=== PATIENT | male | born 1940 | race Caucasian/White ===

== ENCOUNTER → 2017-04-17 | Outpatient (CLI) | payer MEDICARE, OTHER ==
[~2017-04-17] MED LIST: ALLO300 PO; AMLO5 PO; GABA100 PO; METF500C PO; POTCHL20ER PO; TRADJENTA5 MG PO; ZESTORETIC 20-121 EA PO; [UNRECOGNIZED DRUG - OTHER] TOP
== END | disposition home or self-care (01) ==
LOC: LAB EV 18:27
DX: M79.672 Pain in left foot (principal)
CPT/HCPCS: 84550

== ENCOUNTER → 2017-08-11 | Outpatient (CLI) | payer MEDICARE, OTHER ==
[2017-08-11 17:59] LABS: Source, Urine Clean Catch
[2017-08-11 18:03] LABS: BASOPHILS ABSOLUTE AUTO 0.01 K/mm3 (0.00-0.23); BASOPHILS PERCENT AUTO 0 % (0-2); EOSINOPHILS ABSOLUTE AUTO 0.04 K/mm3 (0.00-0.68); EOSINOPHILS PERCENT AUTO 1 % (0-6); Hematocrit 40.2 % (37.0-53.0); IMMATURE GRAN ABSOLUTE AUTO 0.02 K/mm3 (0.00-0.10); IMMATURE GRAN PERCENT AUTO 1 % (0-1); LYMPHOCYTES ABSOLUTE AUTO 1.36 K/mm3 (0.84-5.20); LYMPHOCYTES PERCENT AUTO 39 % (21-46); MONOCYTES ABSOLUTE AUTO 0.49 K/mm3 (0.16-1.47); MONOCYTES PERCENT AUTO 14 % (4-13); Mean Corpuscular HGB 30.6 pg (26.0-34.0); Mean Corpuscular HGB Conc 34.8 g/dL (31.5-36.5); Mean Corpuscular Volume 88 fL (80-100); Mean Platelet Volume 10.1 fL (9.1-12.4); NEUTROPHILS ABSOLUTE AUTO 1.54 K/mm3 (1.96-9.15); NEUTROPHILS PERCENT AUTO 44 % (41-73); Platelet Count 192 K/mm3 (150-400); Red Blood Cell Count 4.58 M/mm3 (4.30-5.90); White Blood Cell Count 3.46 K/mm3 (4.00-11.30)
[2017-08-11 18:16] LABS: Albumin, Blood 3.9 g/dL (3.4-5.0); Albumin/Globulin Ratio 1.1 (0.8-1.8); Bilirubin, Total 0.5 mg/dL (0.1-1.0); Bun/Creatinine Ratio 15.7 (12.0-20.0); Calcium, Blood 8.8 mg/dL (8.5-10.1); Creatinine, Blood 1.27 mg/dL (0.60-1.20); Globulin, Blood 3.5 g/dL (2.2-4.0); Potassium, Blood 3.8 mmol/L (3.5-5.5); Total Protein, Blood 7.4 g/dL (6.4-8.2); Uric Acid, Blood 4.8 mg/dL (3.5-7.2)
[2017-08-11 18:18] LABS: Bacteria Not Seen /hpf; Red Blood Cells, Urine Not Seen /hpf (0-2); Squamous Epithelial Cells Rare /hpf (Few); White Blood Cells, Urine 0-2 /hpf (0-5)
== END ==
LOC: LAB EV 17:52 → LAB SHORT 17:52
PROVIDERS: Physician Assistant
DX: M79.672 Pain in left foot (principal); R10.9 Unspecified abdominal pain
CPT/HCPCS: 80053; 81015; 83690; 84550; 85025

== ENCOUNTER → 2017-08-22 | Outpatient (CLI) | payer MEDICARE, OTHER ==
[2017-08-22 15:11] LABS: BASOPHILS ABSOLUTE AUTO 0.01 K/mm3 (0.00-0.23); BASOPHILS PERCENT AUTO 0 % (0-2); EOSINOPHILS ABSOLUTE AUTO 0.06 K/mm3 (0.00-0.68); EOSINOPHILS PERCENT AUTO 2 % (0-6); Hematocrit 39.5 % (37.0-53.0); Hemoglobin 14.1 g/dL (13.5-17.5); IMMATURE GRAN ABSOLUTE AUTO 0.05 K/mm3 (0.00-0.10); IMMATURE GRAN PERCENT AUTO 1 % (0-1); LYMPHOCYTES ABSOLUTE AUTO 1.47 K/mm3 (0.84-5.20); LYMPHOCYTES PERCENT AUTO 41 % (21-46); MONOCYTES ABSOLUTE AUTO 0.42 K/mm3 (0.16-1.47); MONOCYTES PERCENT AUTO 12 % (4-13); Mean Corpuscular HGB 30.8 pg (26.0-34.0); Mean Corpuscular HGB Conc 35.7 g/dL (31.5-36.5); Mean Corpuscular Volume 86 fL (80-100); Mean Platelet Volume 10.2 fL (9.1-12.4); NEUTROPHILS ABSOLUTE AUTO 1.62 K/mm3 (1.96-9.15); NEUTROPHILS PERCENT AUTO 45 % (41-73); Platelet Count 189 K/mm3 (150-400); RDW Standard Deviation 40.2 fL (35.1-46.3); Red Blood Cell Count 4.58 M/mm3 (4.30-5.90); White Blood Cell Count 3.63 K/mm3 (4.00-11.30)
[2017-08-22 15:24] LABS: Albumin/Globulin Ratio 1.2 (0.8-1.8); Bilirubin, Total 0.4 mg/dL (0.1-1.0); Bun/Creatinine Ratio 16.1 (12.0-20.0); Calcium, Blood 8.5 mg/dL (8.5-10.1); Creatinine, Blood 1.37 mg/dL (0.60-1.20); Globulin, Blood 3.4 g/dL (2.2-4.0); Potassium, Blood 3.4 mmol/L (3.5-5.5); Total Protein, Blood 7.4 g/dL (6.4-8.2)
== END | disposition home or self-care (01) ==
LOC: LAB SHORT 15:07 → LAB EV 15:07
PROVIDERS: Physician Assistant
DX: R10.9 Unspecified abdominal pain (principal)
CPT/HCPCS: 80053; 83690; 85025

== ENCOUNTER 2018-03-12 08:21 | Day surgery (SDC) | payer MEDICARE, OTHER ==
[~2018-03-12] VITALS: Ht 203.2 cm; Wt 93.0 kg
[2018-03-12 09:53] LABS: Anion Gap 9 mmol/L (6-16); Blood Urea Nitrogen 22 mg/dL (8-24); Bun/Creatinine Ratio 21.8 (12.0-20.0); CO2, Blood 30 mmol/L (21-32); Calcium, Blood 8.8 mg/dL (8.5-10.1); Chloride, Blood 104 mmol/L (98-108); Creatinine, Blood 1.01 mg/dL (0.60-1.20); Glomerular Filtration Rate >60 (60-); Glucose, Blood 158 mg/dL (70-99); Potassium, Blood 3.1 mmol/L (3.5-5.5); Sodium, Blood 143 mmol/L (136-145)
== END 2018-03-12 22:38 | disposition home or self-care (01) ==
LOC: ORSCMMR 08:21 → ORD 09:45 → ORSCMMR 10:00
PROVIDERS: Anesthesiology; Surgery
PROC: 0JB80ZZ Excision of Abdomen Subcutaneous Tissue and Fascia, Open Approach (ICD-10-PCS; principal; 2018-03-12 11:30)
DX: D17.1 Benign lipomatous neoplasm of skin and subcutaneous tissue of trunk (principal); I10 Essential (primary) hypertension; E11.9 Type 2 diabetes mellitus without complications; G47.33 Obstructive sleep apnea (adult) (pediatric); C85.90 Non-Hodgkin lymphoma, unspecified, unspecified site; Z79.899 Other long term (current) drug therapy
CPT/HCPCS: 80048; 82947; 88304; J0690; J2250; J2405; J7120

== ENCOUNTER → 2019-01-24 | Outpatient (CLI) | payer MEDICARE, BC ==
[2019-01-24 11:04] LABS: Bilirubin, Urine Neg (Neg); Blood, Urine Neg (Neg); Glucose Qualitative, Urine 1+ (Neg); Ketones, Urine Neg (Neg); Leukocyte Esterase, Urine Neg (Neg); Nitrite, Urine Neg (Neg); Protein, Urine 1+ (Neg); Urobilinogen, Urine NORM (Normal)
[2019-01-24 11:10] LABS: Appearance, Urine Clear (Clear); Color, Urine Yellow (P-Yellow)
== END | disposition home or self-care (01) ==
LOC: LAB SHORT 09:59 → LAB 09:59
PROVIDERS: Internal Medicine Hematology & Oncology
DX: C85.90 Non-Hodgkin lymphoma, unspecified, unspecified site (principal)
CPT/HCPCS: 81003

== ENCOUNTER → 2020-04-22 | Outpatient (CLI) | payer MEDICARE, BC ==
[~2020-04-22] MED LIST changes: +ACET325 PO; +AMLO10 PO; -AMLO5 PO; +ATOR20 PO; +AZIT500 PO; +Aspir 8181 MG PO; +CEFD300 PO; +CLIN150 PO; +DEXA2 PO; +GLUCOPHAGE1000 M1 PO; +INSULANPEN SC; +LOSARTAN POTAS100 M1 PO; -METF500C PO; +METO50ER PO; +POTA10T PO; -POTCHL20ER PO; +Zofran8 MG PO
== END | disposition home or self-care (01) ==
LOC: LAB EV 15:51 → LAB SHORT 15:51
DX: R19.7 Diarrhea, unspecified (principal)
CPT/HCPCS: 87015; 87045; 87046; 87205; 87493; 87899

== ENCOUNTER 2020-04-23 19:21 | Emergency (ER) | payer MEDICARE, BC ==
[~2020-04-23] VITALS: Ht 203.2 cm; Wt 86.2 kg
[~2020-04-23 19:21] MED LIST changes: -ACET325 PO; -AZIT500 PO; -CEFD300 PO; -CLIN150 PO; -DEXA2 PO; -INSULANPEN SC; -Zofran8 MG PO
[2020-04-23] MEDS ORDERED: AZIT500 PO (19:52)
[2020-04-23] MEDS ORDERED: CLIN150 PO (19:52)
[2020-04-23 20:18] LABS: BASOPHILS PERCENT AUTO 0 % (0-2); EOSINOPHILS PERCENT AUTO 0 % (0-6); Hematocrit 36.5 % (37.0-53.0); Hemoglobin 12.9 g/dL (13.5-17.5); IMMATURE GRAN ABSOLUTE AUTO 0.04 K/mm3 (0.00-0.10); IMMATURE GRAN PERCENT AUTO 3 % (0-1); LYMPHOCYTES ABSOLUTE AUTO 0.19 K/mm3 (0.84-5.20); LYMPHOCYTES PERCENT AUTO 14 % (21-46); MONOCYTES ABSOLUTE AUTO 0.41 K/mm3 (0.16-1.47); MONOCYTES PERCENT AUTO 30 % (4-13); Mean Corpuscular HGB 29.7 pg (26.0-34.0); Mean Corpuscular HGB Conc 35.3 g/dL (31.5-36.5); Mean Corpuscular Volume 84 fL (80-100); Mean Platelet Volume 10.5 fL (9.1-12.4); NEUTROPHILS ABSOLUTE AUTO 0.73 K/mm3 (1.96-9.15); NEUTROPHILS PERCENT AUTO 53 % (41-73); Platelet Count 158 K/mm3 (150-400); RDW Coefficient Variation 12.4 % (11.7-14.2); RDW Standard Deviation 38.2 fL (35.1-46.3); Red Blood Cell Count 4.35 M/mm3 (4.30-5.90); White Blood Cell Count 1.37 K/mm3 (4.00-11.30)
[2020-04-23 20:38] LABS: Troponin I 0.035 ng/mL (0.000-0.040)
[2020-04-23 21:18] LABS: Alanine Aminotransfer (ALT/SGP 30 U/L (12-78); Albumin, Blood 3.1 g/dL (3.4-5.0); Albumin/Globulin Ratio 0.9 (0.8-1.8); Alk Phos 60 U/L (50-136); Anion Gap 9 mmol/L (6-16); Aspartate Aminotrans (AST/SGOT 35 U/L (12-37); Bilirubin, Total 0.6 mg/dL (0.1-1.0); Blood Urea Nitrogen 16 mg/dL (8-24); Bun/Creatinine Ratio 16.5 (12.0-20.0); CO2, Blood 21 mmol/L (21-32); Calcium, Blood 7.9 mg/dL (8.5-10.1); Chloride, Blood 103 mmol/L (98-108); Creatinine, Blood 0.97 mg/dL (0.60-1.20); Globulin, Blood 3.3 g/dL (2.2-4.0); Glomerular Filtration Rate >60 (60-); Glucose, Blood 154 mg/dL (70-99); Potassium, Blood 2.9 mmol/L (3.5-5.5); Sodium, Blood 133 mmol/L (136-145); Total Protein, Blood 6.4 g/dL (6.4-8.2)
[2020-04-23 21:30] LABS: Magnesium, Blood 1.8 mg/dL (1.6-2.4)
[2020-04-23] MEDS ORDERED: Zofran8 MG PO (23:28)
== END 2020-04-23 23:37 | disposition home or self-care (01) ==
LOC: ER 19:21
PROVIDERS: Emergency Medicine
DX: E87.6 Hypokalemia (principal); R11.2 Nausea with vomiting, unspecified; R63.0 Anorexia; Z79.899 Other long term (current) drug therapy; Z91.018 Allergy to other foods; Z91.02 Food additives allergy status; Z68.20 Body mass index [BMI] 20.0-20.9, adult
CPT/HCPCS: 36415; 71046; 80053; 83690; 83735; 84145; 84484; 85025; 93005; 93010; 96365; 96375; 99285-25; A9270; J2405; J3475

== ENCOUNTER 2020-04-26 14:34 | Inpatient (IN) | payer MEDICARE, BC ==
[~2020-04-26] VITALS: Ht 185.4 cm; Wt 58.2 kg
[~2020-04-26 14:34] MED LIST changes: +AZIT500 PO; +CLIN150 PO; +Zofran8 MG PO
[2020-04-26 15:11] LABS: BASOPHILS ABSOLUTE AUTO 0.01 K/mm3 (0.00-0.23); BASOPHILS PERCENT AUTO 0 % (0-2); EOSINOPHILS PERCENT AUTO 0 % (0-6); Hematocrit 39.2 % (37.0-53.0); Hemoglobin 13.8 g/dL (13.5-17.5); IMMATURE GRAN ABSOLUTE AUTO 0.11 K/mm3 (0.00-0.10); IMMATURE GRAN PERCENT AUTO 5 % (0-1); LYMPHOCYTES ABSOLUTE AUTO 0.38 K/mm3 (0.84-5.20); LYMPHOCYTES PERCENT AUTO 16 % (21-46); MONOCYTES PERCENT AUTO 21 % (4-13); Mean Corpuscular HGB 29.7 pg (26.0-34.0); Mean Corpuscular HGB Conc 35.2 g/dL (31.5-36.5); Mean Corpuscular Volume 84 fL (80-100); Mean Platelet Volume 10.8 fL (9.1-12.4); NEUTROPHILS ABSOLUTE AUTO 1.37 K/mm3 (1.96-9.15); NEUTROPHILS PERCENT AUTO 58 % (41-73); Platelet Count 172 K/mm3 (150-400); RDW Coefficient Variation 12.7 % (11.7-14.2); RDW Standard Deviation 39.3 fL (35.1-46.3); Red Blood Cell Count 4.65 M/mm3 (4.30-5.90); White Blood Cell Count 2.37 K/mm3 (4.00-11.30)
[2020-04-26 15:25] LABS: Alanine Aminotransfer (ALT/SGP 67 U/L (12-78); Albumin, Blood 2.9 g/dL (3.4-5.0); Albumin/Globulin Ratio 0.9 (0.8-1.8); Alk Phos 53 U/L (50-136); Anion Gap 8 mmol/L (6-16); Aspartate Aminotrans (AST/SGOT 112 U/L (12-37); Bilirubin, Total 0.8 mg/dL (0.1-1.0); Blood Urea Nitrogen 24 mg/dL (8-24); Bun/Creatinine Ratio 22.6 (12.0-20.0); CO2, Blood 26 mmol/L (21-32); Calcium, Blood 7.8 mg/dL (8.5-10.1); Chloride, Blood 101 mmol/L (98-108); Creatinine, Blood 1.06 mg/dL (0.60-1.20); Globulin, Blood 3.4 g/dL (2.2-4.0); Glomerular Filtration Rate >60 (60-); Glucose, Blood 172 mg/dL (70-99); Potassium, Blood 3.3 mmol/L (3.5-5.5); Sodium, Blood 135 mmol/L (136-145); Total Protein, Blood 6.3 g/dL (6.4-8.2); Troponin I 0.035 ng/mL (0.000-0.040)
[2020-04-26 18:33] LABS: Influenza A, PCR Negative (NEGATIVE); Influenza B, PCR Negative (NEGATIVE); Resp Syncytial Virus, PCR Negative (NEGATIVE); SARS-Cov-2 (COVID-19) PCR, MMC Negative (NEGATIVE)
--- NOTE | 2020-04-27 01:02 | NUR ---
WHILE TAKING PO MEDS EARLIER, NURSE ENCOURAGED HIM TO TAKE THEM WITH APPLESAUCE ONE OF THE MEDS WAS POTASSIUM. HE STARTED TO TAKE THEM WITH THE APPLESAUCE, THEN VOICED HE PREFERRED TO DO SO WITH WATER. HE PUT SEVERAL PILLS IN HIS HAND AND CHASED THEM WITH WATER, HE SAT UP QUICKLY (WAS SITTING UP 75 DEGREES BEFORE). AND WAS STARTLED. STATED "TOO MANY AT ONCE". NURSE SUGGESTED TO TAKE THEM ONE AT A TIME FROM NOW ON. PT AGREED. IV ANTIBIOTICS INFUSING - SEE MAR FOR DETAILS. CALL LIGHT IN REACH
--- NOTE | 2020-04-27 03:09 | NUR ---
SHIFT SUMMARY HAS BEEN RESTING QUIETLY WITH OCCASIONAL INTERRUPTIONS - SUCH ASSISTED TO COMMODE FOR BOWEL MOVEMENTS - LOOSE, DARK. DENIED PAIN WHEN ASKED. TOLERATING PO MEDS AND FLUIDS. NO NOTED S/S ACUTE DISTRESS AT THIS TIME. CALL LIGHT IN REACH. RAILS UP X 2
--- NOTE | 2020-04-27 03:13 | NUR ---
HAS BEEN RESTING QUIETLY SINCE PREVIOUS ENTRY WITH HOB ELEVATED FOR COMFORT. LUNG SOUNDS DIMINISHED. ANTIBIOTICS ADMINISTERED - SEE MAR FOR DETAILS. CALL LIGHT IN REACH. RAILS UP X 2. WILL CONTINUE TO MONITOR
[2020-04-27 04:44] LABS: Hematocrit 38.4 % (37.0-53.0); Hemoglobin 13.4 g/dL (13.5-17.5); Mean Corpuscular HGB 29.8 pg (26.0-34.0); Mean Corpuscular HGB Conc 34.9 g/dL (31.5-36.5); Mean Corpuscular Volume 86 fL (80-100); Mean Platelet Volume 10.8 fL (9.1-12.4); Platelet Count 157 K/mm3 (150-400); RDW Coefficient Variation 12.8 % (11.7-14.2); RDW Standard Deviation 39.9 fL (35.1-46.3); Red Blood Cell Count 4.49 M/mm3 (4.30-5.90); White Blood Cell Count 2.21 K/mm3 (4.00-11.30)
[2020-04-27] MEDS ORDERED: CEFD300 PO (04:46)
[2020-04-27 05:04] LABS: Alanine Aminotransfer (ALT/SGP 107 U/L (12-78); Albumin, Blood 2.6 g/dL (3.4-5.0); Albumin/Globulin Ratio 0.8 (0.8-1.8); Alk Phos 56 U/L (50-136); Anion Gap 9 mmol/L (6-16); Aspartate Aminotrans (AST/SGOT 186 U/L (12-37); Bilirubin, Total 0.8 mg/dL (0.1-1.0); Blood Urea Nitrogen 23 mg/dL (8-24); Bun/Creatinine Ratio 19.3 (12.0-20.0); CO2, Blood 24 mmol/L (21-32); Calcium, Blood 7.7 mg/dL (8.5-10.1); Chloride, Blood 102 mmol/L (98-108); Creatinine, Blood 1.19 mg/dL (0.60-1.20); Globulin, Blood 3.4 g/dL (2.2-4.0); Glomerular Filtration Rate >60 (60-); Glucose, Blood 139 mg/dL (70-99); Potassium, Blood 3.5 mmol/L (3.5-5.5); Sodium, Blood 135 mmol/L (136-145)
[2020-04-27 06:09] LABS: BAND PERCENT MAN 12 % (0-8); BASOPHILS PERCENT MAN 0 % (0-2); EOSINOPHILS PERCENT MAN 0 % (0-6); LYMPHOCYTES ABSOLUTE MAN 0.46 K/mm3 (0.84-5.20); LYMPHOCYTES PERCENT MAN 21 % (21-46); METAMYELOCYTE ABSOLUTE MAN 0.02 K/mm3 (0.00-0.00); METAMYELOCYTE PERCENT MAN 1 % (0-0); MONOCYTES ABSOLUTE MAN 0.46 K/mm3 (0.16-1.47); MONOCYTES PERCENT MAN 21 % (4-13); NEUTROPHILS ABSOLUTE MAN 1.25 K/mm3 (1.96-9.15); SEG NEUTROPHILS PERCENT MAN 45 % (41-73); TOTAL CELLS COUNTED 100
--- NOTE | 2020-04-27 06:10 | NUR ---
TEMP 102.6 ORAL. TYLENOL 650 MG PO ADMINISTERED. WILL RECHECK TEMP IN ABOUT 1/2 HR OR SO. CALL LIGHT IN REACH
--- NOTE | 2020-04-27 14:29 | NUR ---
permission to provide care student nurse roderick moulton recieved permission to provide care on 04/27/20
--- NOTE | 2020-04-27 17:37 | NUR ---
ADMIT:04/26/20 DISCHARGE: DX: pna CC: [email or web address] LANRE CALL: RESIDENCE: home CAREGIVER: Spouse / Partner, [phone] DK Melendez, Child, [phone] DX: htn, ckd 3, osteo arthritis, kate, renal disorder, type 2 dm. steatosis of liver, see list DME: cpap CCM: no record HOME HEALTH: no record SUMMARY: admit 04/26/20 04/27/[address] Pollard, no eta for discharge today. cp ASSESSMENT AND PLAN: 1. Community-acquired right lower lobe pneumonia with worsening opacities bilaterally. The patient finished a Z-Darrell and is group home through his other antibiotics. The patient will be started on Zosyn IV q.6 hours. Blood cultures and sputum cultures are ordered. The patient's BNP appears to be normal. We will have O2 supplementation as needed. Supportive management with breathing treatment and nebulizers and start the patient on flutter valve.
--- NOTE | 2020-04-27 20:44 | NUR ---
AWAKENS AT ROUNDING, TOLERATES MEDS WELL - 1 TO 2 PILLS AT A TIME WITH WATER. O2 PER NC. CALL LIGHT IN REACH. DENIES PAIN. CALL LIGHT IN REACH
--- NOTE | 2020-04-28 03:31 | NUR ---
SHIFT SUMMARY AWAKE AT TIMES TO VOID IN URINAL AT BEDSIDE. QUIET IN VERBAL RESPONSES TO QUESTIONS ASKED. IV ANTIBIOTICS INFUSING PER MAR, REQUESTED AND RECEIVED SLEEP MED EARLIER, MELATONIN ORDERED AND WAS SOMEWHAT EFFECTIVE. HOB REMAINS ELEVATED AND ASPIRATION PRECAUTIONS MAINTAINED, CALL LIGHT IN REACH.
[2020-04-28 04:47] LABS: Hematocrit 35.7 % (37.0-53.0); Hemoglobin 12.4 g/dL (13.5-17.5); Mean Corpuscular HGB 29.7 pg (26.0-34.0); Mean Corpuscular HGB Conc 34.7 g/dL (31.5-36.5); Mean Corpuscular Volume 85 fL (80-100); Mean Platelet Volume 10.7 fL (9.1-12.4); Platelet Count 159 K/mm3 (150-400); RDW Coefficient Variation 12.9 % (11.7-14.2); RDW Standard Deviation 39.9 fL (35.1-46.3); Red Blood Cell Count 4.18 M/mm3 (4.30-5.90); White Blood Cell Count 1.53 K/mm3 (4.00-11.30)
[2020-04-28 05:08] LABS: Alanine Aminotransfer (ALT/SGP 172 U/L (12-78); Albumin, Blood 2.5 g/dL (3.4-5.0); Albumin/Globulin Ratio 0.9 (0.8-1.8); Alk Phos 57 U/L (50-136); Anion Gap 10 mmol/L (6-16); Aspartate Aminotrans (AST/SGOT 229 U/L (12-37); Bilirubin, Total 0.8 mg/dL (0.1-1.0); Blood Urea Nitrogen 24 mg/dL (8-24); Bun/Creatinine Ratio 21.1 (12.0-20.0); CO2, Blood 22 mmol/L (21-32); Calcium, Blood 7.7 mg/dL (8.5-10.1); Chloride, Blood 104 mmol/L (98-108); Creatinine, Blood 1.14 mg/dL (0.60-1.20); Globulin, Blood 2.9 g/dL (2.2-4.0); Glomerular Filtration Rate >60 (60-); Glucose, Blood 126 mg/dL (70-99); Potassium, Blood 3.2 mmol/L (3.5-5.5); Sodium, Blood 136 mmol/L (136-145); Total Protein, Blood 5.4 g/dL (6.4-8.2)
[2020-04-28 05:36] LABS: BAND PERCENT MAN 12 % (0-8); BASOPHILS PERCENT MAN 0 % (0-2); EOSINOPHILS PERCENT MAN 0 % (0-6); LYMPHOCYTES ABSOLUTE MAN 0.21 K/mm3 (0.84-5.20); LYMPHOCYTES PERCENT MAN 14 % (21-46); METAMYELOCYTE ABSOLUTE MAN 0.04 K/mm3 (0.00-0.00); METAMYELOCYTE PERCENT MAN 3 % (0-0); MONOCYTES ABSOLUTE MAN 0.24 K/mm3 (0.16-1.47); MONOCYTES PERCENT MAN 16 % (4-13); NEUTROPHILS ABSOLUTE MAN 1.02 K/mm3 (1.96-9.15); SEG NEUTROPHILS PERCENT MAN 55 % (41-73); TOTAL CELLS COUNTED 100
--- NOTE | 2020-04-28 16:51 | NUR ---
04/28/[address] Patel, Likely will be discharged home over the course the next 1 to 2 days depending upon clinical course. I will meet with patient on Monday to discuss discharge planning. cp
--- NOTE | 2020-04-28 20:03 | NUR ---
AWAKE, CURLED UP ON BED WITH DIARRHEA. CLEANED UP, LINEN CHANGED. AFFECT WITHDRAWN AND BEHAVIOR QUIET. NOTED POOR APPETITE WITH DINNER TRAY. ASKED IF HE WAS DEPRESSED, PT DENIED IT, SAID HE WAS "NOT HUNGRY" AND DID NOT EXPAND ON WHY EVEN WHEN ASKED TO DO SO. ENCOURAGEMENT GIVEN. IFV INFUSING. TEMP 101.3 ORAL. TYLENOL GIVEN. CALL LIGHT IN REACH
--- NOTE | 2020-04-29 03:40 | NUR ---
SHIFT SUMMARY RESTING QUIETLY WITH FEW INTERRUPTIONS. SAID INTERRUPTIONS INCLUDED INCONT OF FECES AND REQUEST ASSIST TO GO TO BEDSIDE COMMODE. IVF OF NS WITH 20 mEq of KCL infusing at 75 ML/HR AND IV ANTIBIOTICS OF ZOSYN Q 6 HRS. LUNGS DIMINISHED, PT REMAINS WEAK AND POOR APPETITE. ENCOURAGED TO TALK WITH STAFF IF FEELING DEPRESSED, BEHAVIOR SEEMS WITHDRAWN. CALL LIGHT IN REACH. HOB REMAINS ELEVATED FOR COMFORT
[2020-04-29 04:49] LABS: Hematocrit 38.4 % (37.0-53.0); Hemoglobin 12.9 g/dL (13.5-17.5); Mean Corpuscular HGB 28.9 pg (26.0-34.0); Mean Corpuscular HGB Conc 33.6 g/dL (31.5-36.5); Mean Corpuscular Volume 86 fL (80-100); Mean Platelet Volume 10.1 fL (9.1-12.4); Platelet Count 179 K/mm3 (150-400); RDW Coefficient Variation 13.1 % (11.7-14.2); RDW Standard Deviation 41.1 fL (35.1-46.3); Red Blood Cell Count 4.46 M/mm3 (4.30-5.90); White Blood Cell Count 1.55 K/mm3 (4.00-11.30)
[2020-04-29 05:04] LABS: Alanine Aminotransfer (ALT/SGP 161 U/L (12-78); Albumin, Blood 2.4 g/dL (3.4-5.0); Albumin/Globulin Ratio 0.8 (0.8-1.8); Alk Phos 62 U/L (50-136); Anion Gap 8 mmol/L (6-16); Aspartate Aminotrans (AST/SGOT 187 U/L (12-37); Bilirubin, Total 0.9 mg/dL (0.1-1.0); Blood Urea Nitrogen 23 mg/dL (8-24); CO2, Blood 25 mmol/L (21-32); Calcium, Blood 7.5 mg/dL (8.5-10.1); Chloride, Blood 104 mmol/L (98-108); Creatinine, Blood 1.21 mg/dL (0.60-1.20); Globulin, Blood 3.2 g/dL (2.2-4.0); Glomerular Filtration Rate >60 (60-); Glucose, Blood 105 mg/dL (70-99); Potassium, Blood 3.4 mmol/L (3.5-5.5); Sodium, Blood 137 mmol/L (136-145); Total Protein, Blood 5.6 g/dL (6.4-8.2)
[2020-04-29 06:16] LABS: BAND PERCENT MAN 5 % (0-8); BASOPHILS PERCENT MAN 0 % (0-2); EOSINOPHILS PERCENT MAN 0 % (0-6); LYMPHOCYTES ABSOLUTE MAN 0.32 K/mm3 (0.84-5.20); LYMPHOCYTES PERCENT MAN 21 % (21-46); METAMYELOCYTE ABSOLUTE MAN 0.03 K/mm3 (0.00-0.00); METAMYELOCYTE PERCENT MAN 2 % (0-0); MONOCYTES ABSOLUTE MAN 0.32 K/mm3 (0.16-1.47); MONOCYTES PERCENT MAN 21 % (4-13); NEUTROPHILS ABSOLUTE MAN 0.86 K/mm3 (1.96-9.15); SEG NEUTROPHILS PERCENT MAN 51 % (41-73); TOTAL CELLS COUNTED 100
--- NOTE | 2020-04-29 17:31 | NUR ---
Mr. Williamson is deeply yarsani and feels that anything less than "full code" is a disappointment to God. He is appreciative of prayer. He appears sleepy and frail and did not engage in lengthy conversation. Provided prayer and apiritual affirmation. I will remain available.
--- NOTE | 2020-04-29 18:24 | NUR ---
SHIFT SUMMARY PT HAS BEEN SLEEPING A LOT OF THE SHIFT. PT HAS HAD NO APPETITE AND DECLINING FOOD. STAFF HAVE ENCOURAGED PT TO DRINK GLUCERNA FOR CALORIES AND PROTEIN. PT HAS HAD MULITPLE LOOSE STOOL THIS SHIFT. UP TO BSC WITH ASSIST. THIS RN MEDICATED WITH REGLAN FOR DINNER TO HELP PT WITH WANTING TO EAT. IVF INFUSING WITHOUT DIFFICULTY. PT HAS HAD NO COMPLAINTS OF PAIN. NO ACUTE CHANGES THIS SHIFT. CALL LIGHT IN REACH. WILL CONTINUE TO MONITOR AND REPORT TO ONCOMING RN.
--- NOTE | 2020-04-29 18:31 | NUR ---
04/28/[address] Fuentes today, no ETA for discharge. Updated white board, [facility] . Met with Richard and his daughter Constanza in room [phone] Currently on oxygen, does not have at home. Does not have cane, walker or wheelchair Has been mobile prior to his hospitalization Has been very weak for the last 3 weeks, would like PT OT to see him prior to discharge. He is not interested in snf, feels daughter can help at home. Interested in home health services, no preference. I will continue to follow for discharge planning. cp
--- NOTE | 2020-04-29 20:40 | NUR ---
ASSUMED CARE. TONG IS AOX3, SLOW TO RESPOND, FLAT AFFECT, WITHDRAWN. ILL APPEARING. LUNG SOUNDS VERY DIMINISHED T/O RESP ARE EVEN AND UNLABORED AT THIS TIME. SOB WITH EXERTION. OCCATIONAL DRY COUGH. ON 2 LITERS WITH SATS GREATER THEN 90. DENIES ANY CHEST PAIN OR DISCOMFORT. URINE IS YELLOW, CLEAR, USES URINAL. VERY WEAK AND MOVES SLOW. SKIN PWD. PM MEDS GIVEN. CALLS APPROPRIATLY.
--- NOTE | 2020-04-30 04:31 | NUR ---
PATIENTS HANDS ARE VERY COLD AND OXYGEN SATURATION IS HAVING TROUBLE READING RATE EVEN WHEN WE TURN THE OXYGEN UP NO CHANGE IN SATS. HE FEELS SLIGHTLY WARM TO THE TOUCH BUT NOT FEVERISH. RESP ARE EVEN AND UNLABORED, WILL RECHECK VITALS.
[2020-04-30 05:31] LABS: Hematocrit 36.4 % (37.0-53.0); Hemoglobin 12.6 g/dL (13.5-17.5); Mean Corpuscular HGB 29.4 pg (26.0-34.0); Mean Corpuscular HGB Conc 34.6 g/dL (31.5-36.5); Mean Corpuscular Volume 85 fL (80-100); Mean Platelet Volume 10.3 fL (9.1-12.4); Platelet Count 173 K/mm3 (150-400); RDW Coefficient Variation 13.1 % (11.7-14.2); RDW Standard Deviation 40.8 fL (35.1-46.3); Red Blood Cell Count 4.28 M/mm3 (4.30-5.90); White Blood Cell Count 2.16 K/mm3 (4.00-11.30)
--- NOTE | 2020-04-30 05:36 | NUR ---
SHIFT SUMMARY: LUNG SOUNDS ARE STILL VERY DIMINISHED WITH LITTLE AIR EXCHANGE IN BASES. NO COUGH NOTED. DYSPNEA WITH EXERTION, RECOVERY TIME LESS THEN A MINUTES. VERY WEAK BUT ABLE TO GET TO BSC. POOR APPETITE. PALE. RESPIRATIONS HAVE AVERAGED AROUND 24 PER MINUTE. FEBRILE THIS AM AT 101.8 AFTER TYELNOL WAS 97. DID HAVE TO INCREASE OXYGEN TO 4 LITERS DUE TO SATS DROPPING DURING SLEEP, NOW ARE 90-91% WHEN SLEEPING. ENCOURAGED HIM TO GET UP AND MOVE, DO SOME DEEP BREATHING BUT HE IS NOT VERY MOTIVATED. IVF CONTINUE TO INFUSE. NO PAIN NOTED. CALL LIGHT REMAINS IN REACH.
[2020-04-30 05:53] LABS: Alanine Aminotransfer (ALT/SGP 152 U/L (12-78); Albumin, Blood 2.2 g/dL (3.4-5.0); Albumin/Globulin Ratio 0.7 (0.8-1.8); Alk Phos 68 U/L (50-136); Anion Gap 9 mmol/L (6-16); Aspartate Aminotrans (AST/SGOT 215 U/L (12-37); Bilirubin, Total 0.7 mg/dL (0.1-1.0); Blood Urea Nitrogen 17 mg/dL (8-24); CO2, Blood 24 mmol/L (21-32); Calcium, Blood 7.1 mg/dL (8.5-10.1); Chloride, Blood 103 mmol/L (98-108); Creatinine, Blood 1.06 mg/dL (0.60-1.20); Glomerular Filtration Rate >60 (60-); Glucose, Blood 103 mg/dL (70-99); Sodium, Blood 136 mmol/L (136-145); Total Protein, Blood 5.2 g/dL (6.4-8.2)
[2020-04-30 06:14] LABS: BAND PERCENT MAN 10 % (0-8); BASOPHILS PERCENT MAN 0 % (0-2); EOSINOPHILS PERCENT MAN 0 % (0-6); LYMPHOCYTES ABSOLUTE MAN 0.41 K/mm3 (0.84-5.20); LYMPHOCYTES PERCENT MAN 19 % (21-46); METAMYELOCYTE ABSOLUTE MAN 0.04 K/mm3 (0.00-0.00); METAMYELOCYTE PERCENT MAN 2 % (0-0); MONOCYTES ABSOLUTE MAN 0.36 K/mm3 (0.16-1.47); MONOCYTES PERCENT MAN 17 % (4-13); NEUTROPHILS ABSOLUTE MAN 1.33 K/mm3 (1.96-9.15); SEG NEUTROPHILS PERCENT MAN 52 % (41-73); TOTAL CELLS COUNTED 100
--- NOTE | 2020-04-30 14:01 | NUR ---
LOAN PLACEMENT PER DR ALYCE RUCKER TO USE TUBE FOR FEEDING
--- NOTE | 2020-04-30 14:32 | NUR ---
TUBE FEEDING STARTED AT 25 MLS/HR VIA DOBHOFF
--- NOTE | 2020-04-30 18:46 | NUR ---
SHIFT SUMMARY PT HAS HAD NO APPETITE STILL. THIS RN PLACED A DOBHOFF FOR FEEDINGS, WHICH ARE RUNNING CONTINUOUSLY. PT TOLERATING WELL. BLOOD SUGARS WITHIN NORMAL LIMITS. PT HAD A FEVER THIS EVENING. TYLENOL ADMINSTERED AND FEVER DOWN TO 99.9 FROM 102. NO COMPLAINTS OF PAIN. PT SLEEPING OFF AND ON. NO ACUTE CHANGES. CALL LIGHT IN REACH. REPORT GIVEN TO AYLA CAMPBELL.
--- NOTE | 2020-04-30 20:02 | NUR ---
ASSUMED CARE. TONG IS STILL NOT VERY MOTIVATED, LAYS IN BED, ONLY SAYS 1-2 WORDS. APPEARS TO BE DEPRESSED ALL THE TIME, JUST FAILURE TO THRIVE. DENIES ANY PAIN OR DISCOMFORT. DOBHOFF IS INFUSING NUTRITION AT 25ML PER HOUR, HE IS TOLERATING IT WELL, EDUCATED ON KEEPING HEAD OF BED ELEVATED AT 45 DEGREES. HE SAID OK. ABDOMIN STILL SLIGHT TENDER, AND NAUSEA WITH FOOD AND MEDS COMES AND GOES/ DENIES ANY NEEDS AT THIS TIME. WILL CONTINUE TO MONITOR. CALL LIGHT IN REACH.
--- NOTE | 2020-04-30 22:06 | NUR ---
INCREASED TUBE FEEDING TO 45ML/HR. PATIENT HAD HEAD OF BED FLAT, INSTRUCTED AGAIN TO KEEP HEAD OF BED ELEVATED TO PREVENT ASPIRATION, HE SAID OK. WILL CHECK TO MAKE SURE HE IS TOLERATING WELL.
--- NOTE | 2020-05-01 00:32 | NUR ---
TELEMETRY CALLED AND REPORTED HR IN THE 120'S. ARRIVED TO ROOM, PATIENT SLEEPING BUT IS VERY RAPID BREATHING. VITALS: 109/77, RESP 33, HR 106, TEMP 103.2 ORAL AND 94% ON 4 LITERS. TONG STATES HE FEELS FINE. REMOVED BLANKETS. GAVE TYENOL AROUND [address] HARRINGTON AND INFORMED OF SITUATION AND VIEW SCORE OF 6. SHE INCREASED TYLENOL TO 650MG. WILL GIVE ANOTHER 325MG WHEN PHARMACY CHANGES ORDER.
--- NOTE | 2020-05-01 00:50 | NUR ---
VS ARE IMPROVING, RESPIRATIONS ARE DECREASING, TEMP DOWN TO 101.6, HR DOWN TO 96 STILL JUMPS UP SOME BUT NOT THAT HIGH. BP GOING BACK UP. GAVE ANOTHER TYLENOL PER ORDER. WILL CONTINUE TO MONITOR. TOLERATING TUBE FEEDING WELL. CALL LIGHT IS IN REACH.
[2020-05-01 04:43] LABS: Hematocrit 35.7 % (37.0-53.0); Hemoglobin 12.3 g/dL (13.5-17.5); Mean Corpuscular HGB 29.5 pg (26.0-34.0); Mean Corpuscular HGB Conc 34.5 g/dL (31.5-36.5); Mean Corpuscular Volume 86 fL (80-100); Mean Platelet Volume 10.1 fL (9.1-12.4); Platelet Count 187 K/mm3 (150-400); RDW Coefficient Variation 13.2 % (11.7-14.2); RDW Standard Deviation 41.2 fL (35.1-46.3); Red Blood Cell Count 4.17 M/mm3 (4.30-5.90); White Blood Cell Count 2.74 K/mm3 (4.00-11.30)
[2020-05-01 05:00] LABS: Alanine Aminotransfer (ALT/SGP 183 U/L (12-78); Albumin, Blood 2.1 g/dL (3.4-5.0); Albumin/Globulin Ratio 0.8 (0.8-1.8); Alk Phos 88 U/L (50-136); Anion Gap 6 mmol/L (6-16); Aspartate Aminotrans (AST/SGOT 270 U/L (12-37); Bilirubin, Total 0.6 mg/dL (0.1-1.0); Blood Urea Nitrogen 14 mg/dL (8-24); Bun/Creatinine Ratio 13.6 (12.0-20.0); CO2, Blood 24 mmol/L (21-32); Chloride, Blood 108 mmol/L (98-108); Creatinine, Blood 1.03 mg/dL (0.60-1.20); Globulin, Blood 2.7 g/dL (2.2-4.0); Glomerular Filtration Rate >60 (60-); Glucose, Blood 167 mg/dL (70-99); Magnesium, Blood 1.8 mg/dL (1.6-2.4); Phosphorus, Blood 1.6 mg/dL (2.5-4.9); Potassium, Blood 4.2 mmol/L (3.5-5.5); Sodium, Blood 138 mmol/L (136-145); Total Protein, Blood 4.8 g/dL (6.4-8.2)
--- NOTE | 2020-05-01 05:54 | NUR ---
SHIFT SUMMARY: TONG CONTINUES TO BE FAILURE TO THRIVE, LAYING IN BED AND NOT TALKING MUCH OTHER THEN 1-2 WORDS AT A TIME. HE SLEEPS ALL THE TIME EXCEPT WHEN HE STANDS AT BEDSIDE TO USE THE URINAL. TONIGHT TELEMETRY ALARMED ME OF TACHYCARDIA UP IN THE 120'S, ARRIVAL TO ROOM HE WAS TACHYPENIC AT 33, BP WAS 109/44, FEBRIL 103.2, AND HR 106 BOUNCING UP AND DOWN. 325MG OF TYLENOL GIVEN PER ORDERS, MD CALLED AND INFORMED OF VIEW SCORE OF 6, VITALS AND SITUATION. ORDER TO INCREASE TYLENOL TO 650MG. BY SECOND PILL OF TYLENOL HIS FEVER HAD ALREADY DECREASED TO 101.5 RESP 26. THIS AM HE IS STILL RUNNING FEBRILE AT 99.4 RESP 18. SATS ALSO HAVE BEEN UP AND DOWN, FROM 88-91% ON 4 LITERS. LUNG SOUNDS ARE DIMINISHED WITH SOME CRACKLES HERE AND THERE. INSPIROMETER AND FLUTTER VALVE GIVEN. NASOGASTRIC TUBE INFUSING NUTRITION ISOSOURCE, RATE WAS INCREASED TO 45ML/HR AT 2200, JUST INCREASED HIM AGAIN TO 55ML/HR, WILL CONTINUE TO ASSESS THE TOLERATION. NO NOTE OF NAUSEA THIS SHIFT. SKIN IS ALSO VERY PALE AND TENDS TO BE COOL EXCEPT WHEN FEVER IS UP. CALL LIGHT REMAINS IN REACH, AND USED APPROPRIATLY.
[2020-05-01 06:19] LABS: BAND PERCENT MAN 5 % (0-8); BASOPHILS PERCENT MAN 0 % (0-2); EOSINOPHILS PERCENT MAN 0 % (0-6); LYMPHOCYTES PERCENT MAN 11 % (21-46); METAMYELOCYTE ABSOLUTE MAN 0.05 K/mm3 (0.00-0.00); METAMYELOCYTE PERCENT MAN 2 % (0-0); MONOCYTES ABSOLUTE MAN 0.41 K/mm3 (0.16-1.47); MONOCYTES PERCENT MAN 15 % (4-13); MYELOCYTE ABSOLUTE MAN 0.02 K/mm3 (0.00-0.00); MYELOCYTE PERCENT MAN 1 % (0-0); NEUTROPHILS ABSOLUTE MAN 1.94 K/mm3 (1.96-9.15); SEG NEUTROPHILS PERCENT MAN 66 % (41-73); TOTAL CELLS COUNTED 100
[2020-05-01 08:10] LABS: HBSAG SCREEN Negative (Negative); HEP A AB, IGM Negative (Negative); HEP B CORE AB, IGM Negative (Negative); HEP C VIRUS AB <0.1 (0.0-0.9)
--- NOTE | 2020-05-01 12:45 | NUR ---
Initial Pal Care visit - Found pt sitting in chair, slumped posture and legs crossed, head down on chest. Pt woke easily and was agreeable to a visit. We discussed the temporary nature of the NG feeding tube and the hope that it would provide him with more energy and be feeling better. We discussed his follow up scheduled with Dr Flores and pt understands it to be a routine follow up visit. He states he is unaware of any recurrence or change in his status with his non-hodgkins lymphoma. He denies pain and reports mild discomfort from being in bed. He denies nausea at this time and states he is trying to have some food/fluid intake by mouth in addition to tube feeds but he cannot remember eating anything yet today. When asked if anything sounded good to him, he stated watermellon. I looked for watermellon in our cafeteria but none available this time of year. We will ask family if they are able to bring some in if found locally. Pt denies nausea at this time. Pt's affect is flat but he did engage in conversation and make eye contact with me frequently. We reviewed his goals of care and his desired code status. He confirms that he wants to try to get better and get back to his "normal". He confirmed that he wants to remain a full code at this time. We discussed possible outcomes of a resucitation effort such as aspiration pneumonia, anoxic brain injury and chest injury as well as the unlikelyhood that it would improve his current condition and more likely to worsen his current condition. Pt verbalized understanding of our conversation. Pt was cold and wanted to get back to bed. I checked in with RN to report on my visit and check on diet orders and mobility. Assisted pt back to bed using gaitbelt. He was wobbly and very unsteady on his feet but able to stand and get to his feet independently. Gait belt assisted pivot transfer and steps to get back in bed. Pt was unable to bring his feet up into bed without my assist. Pt positioned on his right side with pillows between knees and under shoulder for support. Reported on my visit to Manpreet also. She will ask radha to bring in Watermellon for pt if she has the opportunity to speak with her today. Dr Butler to see pt today and thru the & Monday. Pal care to remain available for assist with support, s/s management and advanced care planning as indicated.
--- NOTE | 2020-05-01 17:21 | NUR ---
SHIFT SUMMARY PATIENT ALERT THIS SHIFT. PATIENT WORKED WITH PT/OT THI SSHIFT. PATIENT INTERACTS MINIMALLY WITH STAFF, OFTEN REPONDING WITH ONLY ONE OR TWO WORDS. PATIENT STANDS AT BEDSIDE TO USE THE URINAL. PATIENT UP TO THE BEDSIDE CHAIR THIS AM. PATIENT FEBRILE WITH ELEVATED BP, HR, AND RESPIRATIONS THIS AM. TYLENOL AND BP MEDICATIONS ADMINISTERED PER EMAR. VIEWS SCORE DISCUSSED WITH CHARGE NURSEMIA. VITAL SIGNS WITHIN NORMAL LIMITS UPON REASSESSMENT. PATIENT CURRENTLY LAYING IN BED WITH DAUGHTER AT BEDSIDE.
--- NOTE | 2020-05-01 20:13 | NUR ---
ASSUMED CARE. TONG IS VERY ILL APPEARING, PALE, WEAK, NOT TALKING MUCH, SLEEPING ALL THE TIME. IS NOW COUGHING OCCATIONALLY AFTER EATING WATERMELON TODAY. RT IS IN THE ROOM WITH ME AND SATS ARE 88% ON 6 LITERS THAT HE WAS TURNED UP TO. RT TO PLACE OXIMIZER WITH HUMIDITY AT 12 LITERS. LUNG SOUNDS ARE VERY COURSE CRACKLES T/O. OCCATIONAL COUGH IS NOTED, EVEN WITH WATER. STATES HE HAS A SORE THROAT AND THAT IT IS HARD FOR HIM TO SWALLOW. REFUSED HIS NIGHT MEDS. WILL CALL MD TO DISCUSS DOBHOFF VERIFICATION, TUBE FEED, AND RESPIRTORY STATUS. CALL LIGHT IS IN REACH.
--- NOTE | 2020-05-01 23:18 | NUR ---
SPOKE WITH FRANCESCA ATKINSON REGARDING TUBE FEED. XRAY SHOWS DOBHOFF IN THE STOMACH, OK TO RESTART TUBE FEEDING. PATIENT MADE NPO DUE TO RISK OF ASPIRATION. INFORMED THAT LUNGS SOUNDS ARE INCREASED IN COURSE CRACKLES, OXYGEN SATS HAVE BEEN INCREASED TO 12 LITERS ON OXIMIZER. ALREADY ON ANTIBOTICS FOR PNEUMONIA. STATES TO CONTINUE TO WATCH THE PATIENT. DOBHOFF FLUSHED WITH 60ML, PATIENT TOLERATED IT WELL, TUBE FEED STARTED AT THE 60ML/HR RATE.
--- NOTE | 2020-05-01 23:41 | NUR ---
HUNG ANTIBOTIC, RESPIRATIONS ARE BACK TO NORMAL. TEMP IS DOWN TO 101.3. WILL CONTINUE TO MONITOR.
--- NOTE | 2020-05-02 05:54 | NUR ---
SHIFT SUMMARY: TUBE FEEDING WAS PLACED ON HOLD ON . GOT ORDER TO VERIFY PLACEMENT, VERFICATION COMPLETED. TUBE FEEDING RESTARTED AT 60ML/HR, NO INCREASE HE EXPERIENCED SOME NAUSEA. SPIKED ANOTHER FEVER ABOVE 102 WHICH INCREASED HR AND RESPIRATIONS. ADMINISTERED TYELNOL WHICH HE WAS ABLE TO SWALLOW BUT DID REPORT PAIN AND DISCOMFORT DUE TO SORE THROAT. HE STATES HE DID FEEL LIKE HE ASPIRATED YESTERDAY. REFUSED TO TAKE NIGHT MEDS DUE TO SORE THROAT. WAS NOTIFED, PATIENT MADE NPO FOR NOW. SLEPT WELL, STILL WEAK AND ILL APPEARING. CALLED AGAIN BRENDA TO GET CHECK UP. WOULD LIKE IF SOMEONE CAN UPDATE HER AT LEAST EVERY OTHER DAY. FEVER STARTED TO CLIMB AGAIN THIS AM EVIDENCE OF TACHYPNEA AND TACHYCARDIA. 100.2 WHEN CAUGHT. TYELNOL GIVEN AGAIN, FEVER ALREADY COMING DOWN SO ARE THE REST OF HIS VITALS. BLOOD SUGARS ARE MAINTAINING HIGH 100'S AT THIS TIME. LUNG SOUNDS DID HAVE INCREASE IN COURSE CRACKLES, CAUSING NEED FOR O2 TO BE INCREASED TO 12L OXIMIZER THIS SHIFT. ENCOURAGE DEEP BREATHING, INSPIROMETER AND FLUTTER VALVE USE. CALL LIGHT REMAINS IN REACH AND USED APPROPRIATLY.
[2020-05-02 07:12] LABS: Source, Urine Clean Catch
[2020-05-02 07:16] LABS: Bilirubin, Urine Neg (Neg); Blood, Urine 4+ (Neg); Glucose Qualitative, Urine 3+ (Neg); Ketones, Urine 1+ (Neg); Leukocyte Esterase, Urine Neg (Neg); Nitrite, Urine Neg (Neg); Protein, Urine 3+ (Neg); Urobilinogen, Urine NORM (Normal)
[2020-05-02 07:24] LABS: Appearance, Urine Clear (Clear); Color, Urine Yellow (P-Yellow)
[2020-05-02 07:26] LABS: Bacteria Few /hpf; Red Blood Cells, Urine 0-2 /hpf (0-2); Squamous Epithelial Cells Rare /hpf (Few); White Blood Cells, Urine 0-2 /hpf (0-5)
[2020-05-02 08:00] LABS: Hematocrit 33.8 % (37.0-53.0); Hemoglobin 12.1 g/dL (13.5-17.5); Mean Corpuscular HGB 30.1 pg (26.0-34.0); Mean Corpuscular HGB Conc 35.8 g/dL (31.5-36.5); Mean Corpuscular Volume 84 fL (80-100); Mean Platelet Volume 10.2 fL (9.1-12.4); Platelet Count 189 K/mm3 (150-400); RDW Standard Deviation 40.3 fL (35.1-46.3); Red Blood Cell Count 4.02 M/mm3 (4.30-5.90); White Blood Cell Count 2.36 K/mm3 (4.00-11.30)
[2020-05-02 08:18] LABS: Alanine Aminotransfer (ALT/SGP 188 U/L (12-78); Albumin, Blood 2.1 g/dL (3.4-5.0); Albumin/Globulin Ratio 0.7 (0.8-1.8); Alk Phos 105 U/L (50-136); Anion Gap 7 mmol/L (6-16); Aspartate Aminotrans (AST/SGOT 236 U/L (12-37); Bilirubin, Total 0.6 mg/dL (0.1-1.0); Blood Urea Nitrogen 13 mg/dL (8-24); Bun/Creatinine Ratio 12.7 (12.0-20.0); CO2, Blood 27 mmol/L (21-32); Calcium, Blood 7.2 mg/dL (8.5-10.1); Chloride, Blood 103 mmol/L (98-108); Creatinine, Blood 1.02 mg/dL (0.60-1.20); Globulin, Blood 2.9 g/dL (2.2-4.0); Glomerular Filtration Rate >60 (60-); Glucose, Blood 246 mg/dL (70-99); Phosphorus, Blood 1.4 mg/dL (2.5-4.9); Potassium, Blood 2.9 mmol/L (3.5-5.5); Sodium, Blood 137 mmol/L (136-145)
[2020-05-02 08:19] LABS: Vancomycin, Trough 10.6 ug/mL (5.0-10.0)
[2020-05-02 08:26] LABS: BAND PERCENT MAN 5 % (0-8); BASOPHILS PERCENT MAN 0 % (0-2); EOSINOPHILS PERCENT MAN 0 % (0-6); LYMPHOCYTES ABSOLUTE MAN 0.28 K/mm3 (0.84-5.20); LYMPHOCYTES PERCENT MAN 12 % (21-46); METAMYELOCYTE ABSOLUTE MAN 0.09 K/mm3 (0.00-0.00); METAMYELOCYTE PERCENT MAN 4 % (0-0); MONOCYTES PERCENT MAN 13 % (4-13); NEUTROPHILS ABSOLUTE MAN 1.67 K/mm3 (1.96-9.15); SEG NEUTROPHILS PERCENT MAN 66 % (41-73); TOTAL CELLS COUNTED 100
--- NOTE | 2020-05-02 09:30 | NUR ---
0742 stopped Propofol and was off until [address] burgos came back. About ten minutes prior patient started to get agitated and stayed in room. When Dr Burgos in room patient was unable to follow commands and or tracking with eye movement. Placed back on Propofol 35 mcg/kg/min and patient started to calm back down, No vent setting changes. VSS, See EMR
--- NOTE | 2020-05-02 09:45 | NUR ---
Patient arrived from medical floor via gurney and a 4 person slide transfer/ He was on 15L O2 and NRM and sats 90-91%. He has dobhoff in right nares infusing glucerna 1. He has 18 ga PowerGlide in GABRIEL and is infusing NS with 20 vasyl of potassium. He asked for urinal and had 150 ml yellow urine.
--- NOTE | 2020-05-02 10:13 | NUR ---
PT STARTED SHIFT ON 12L HIGH FLOW CANULA AND WAS ONLY ABLE TO SAT IN THE LOW 80s. RT WAS CALLED AND NON REBREATHER ON 15L WAS PLACED AND PT WAS SATING AT 91%. PT APPEARING VERY WEAK AND PALE. WAS ABLE TO STAND AND USE BEDSIDE COMMODE WITH ASSISTANCE. PT TOOK OFF OXYGEN A COUPLE TIMES AND HAD TO BE INSTRUCTED TO LEAVE REBREATHER MASK ON. PT ALSO HAD TWO INCONTENT BMs DUE TO LOOSE STOOL. DR MEMBRENO WAS NOTIFIED AND SHE REQUESTED PT BE TRANSFERED TO ICU. REPORT WAS GIVEN PRIOR TO TRANSPORT TO ICU AND ALL PERONAL BELONGS WERE TAKEN WIH PT. PT'S FAMILY WERE NOTIFIED BY [employer]NING HANGER HELPER OF TRANSFER. PT WAS TRANSFERED VIA BED.
[2020-05-02 10:48] LABS: Influenza A, PCR NEGATIVE (NEGATIVE); Influenza B, PCR NEGATIVE (NEGATIVE); Resp Syncytial Virus, PCR NEGATIVE (NEGATIVE)
[2020-05-02 10:53] LABS: SARS-Cov-2 (COVID-19) PCR, MMC POSITIVE (NEGATIVE)
--- NOTE | 2020-05-02 11:00 | NUR ---
Placed 20ga IV in SANGEETHA and started K phos and gave po meds down tube, Patient stated he wanted to ttalk with Dr Nayak and when she game in he wanted her to help with assisted suicide as he felt there was no getting better from this. She offered comfort care only after he talked with family and Dr Arvizu. He stated wanted be full code to Dr Arvizu.
--- NOTE | 2020-05-02 12:31 | NUR ---
Transfered to room ICU 6 and hew was on phone talking to . All belongings were transferred. He was placed on AirVo 55L and 85% and continues to be >90%. Talked with daughter and and gave both updates and Dr Nayak talked to after me. Sister called and told her family wishes is to get info through them and not to get info from hospital, she was upset but accepting.
--- NOTE | 2020-05-02 16:23 | NUR ---
PATIENT HAD PULLED OUT HIS DOBHOFF TWICE, REINSERTED TWICE. BOTH PLACEMENTS VERIFIED AND TUBE FEED CONTINUED. PT TRIED TO PRONE HIMSELF WITHOUT HELP THE FIRST TIME AND THE SECOND TIME HE TRIED TO SIT ON THE SIDE OF THE BED WITHOUT HELP. REMINDED AGAIN FOR HIM TO PLEASE ASK FOR HELP BEFORE TURNING, PRONING OR SITTING ON THE EDGE OF THE BED. PT STATES UNDERSTANDING, HE STATES HE DOESNT WANT FOR US TO HAVE TO PUT THE DOBHOFF BACK IN AGAIN.
--- NOTE | 2020-05-02 18:47 | NUR ---
SHIFT SUMMARY- PT WAS TRANSFERED OVER TO ICU 6 FROM ICU 16. COVID POSITIVE, ON AIRVO AND CAN BECOME TACHYPNIC AT TIME. PT PULLED THE DOBHOFF OUT INADVERTENTLY TWICE. REPLACED AND NOW IS TAPED BEHIND HIS EAR TO KEEP IT FROM CATCHING ON ANYTHING. CONDOM CATH PLACED DUE TO INCONTENENCE AND WEAKNESS. VSS FOR THE SHIFT, RR 22-45. AIRVO ON 40L 65%.
[2020-05-03 03:28] LABS: BASOPHILS ABSOLUTE AUTO 0.01 K/mm3 (0.00-0.23); BASOPHILS PERCENT AUTO 0 % (0-2); Hematocrit 35.1 % (37.0-53.0); Hemoglobin 12.2 g/dL (13.5-17.5); LYMPHOCYTES ABSOLUTE AUTO 0.33 K/mm3 (0.84-5.20); LYMPHOCYTES PERCENT AUTO 11 % (21-46); MONOCYTES ABSOLUTE AUTO 0.54 K/mm3 (0.16-1.47); MONOCYTES PERCENT AUTO 19 % (4-13); Mean Corpuscular HGB Conc 34.8 g/dL (31.5-36.5); Mean Corpuscular Volume 84 fL (80-100); Mean Platelet Volume 10.3 fL (9.1-12.4); Platelet Count 213 K/mm3 (150-400); RDW Coefficient Variation 13.2 % (11.7-14.2); RDW Standard Deviation 39.8 fL (35.1-46.3); White Blood Cell Count 2.91 K/mm3 (4.00-11.30)
[2020-05-03 03:31] LABS: EOSINOPHILS PERCENT AUTO 0 % (0-6); IMMATURE GRAN ABSOLUTE AUTO 0.23 K/mm3 (0.00-0.10); IMMATURE GRAN PERCENT AUTO 8 % (0-1); NEUTROPHILS PERCENT AUTO 62 % (41-73)
[2020-05-03 03:47] LABS: Alanine Aminotransfer (ALT/SGP 176 U/L (12-78); Albumin/Globulin Ratio 0.7 (0.8-1.8); Alk Phos 109 U/L (50-136); Anion Gap 7 mmol/L (6-16); Aspartate Aminotrans (AST/SGOT 190 U/L (12-37); Bilirubin, Total 0.6 mg/dL (0.1-1.0); Blood Urea Nitrogen 13 mg/dL (8-24); Bun/Creatinine Ratio 12.9 (12.0-20.0); CO2, Blood 28 mmol/L (21-32); Calcium, Blood 7.5 mg/dL (8.5-10.1); Chloride, Blood 102 mmol/L (98-108); Creatinine, Blood 1.01 mg/dL (0.60-1.20); Glomerular Filtration Rate >60 (60-); Glucose, Blood 253 mg/dL (70-99); Phosphorus, Blood 1.7 mg/dL (2.5-4.9); Sodium, Blood 137 mmol/L (136-145)
[2020-05-03 03:48] LABS: BAND PERCENT MAN 6 % (0-8); BASOPHILS PERCENT MAN 0 % (0-2); EOSINOPHILS PERCENT MAN 0 % (0-6); LYMPHOCYTES PERCENT MAN 14 % (21-46); METAMYELOCYTE ABSOLUTE MAN 0.29 K/mm3 (0.00-0.00); METAMYELOCYTE PERCENT MAN 10 % (0-0); MONOCYTES PERCENT MAN 14 % (4-13); MYELOCYTE ABSOLUTE MAN 0.08 K/mm3 (0.00-0.00); MYELOCYTE PERCENT MAN 3 % (0-0); NEUTROPHILS ABSOLUTE MAN 1.71 K/mm3 (1.96-9.15); SEG NEUTROPHILS PERCENT MAN 53 % (41-73); TOTAL CELLS COUNTED 100
--- NOTE | 2020-05-03 05:01 | NUR ---
SHIFT SUMMARY PATIENT DID NOT SLEEP WELL TONIGHT. INITIALLY HAD MULTIPLE ROUNDS OF DIARRHEA, PER DR. DOUG SUTTON TO PLACE RECTAL TUBE. WHILE UNCOMFORTABLE, IT WILL HOPEFULLY HELP EXCORIATION THAT HAS DEVELOPED IN PERIANAL AREA. ALSO APPLIED CALAZIME CREAM, PT. STATES IS PROVIDING SOME RELIEF. RESPIRATORY DID TURN DOWN AIRVO TO 75%, STILL 55 L/MIN. ASSESSMENT IS CHARTED. VSS. WILL CONTINUE TO MONITOR.
--- NOTE | 2020-05-03 07:05 | NUR ---
ASSUMED CARE- PT HAD AN UNEVENTFUL NIGHT. RECTAL TUBE WAS PLACED DUE TO CONTINUOUS DIARRHEA AND EXCORIATION OF SCROTUM. PT REMAINS STABLE, CONDOM CATH IN PLACE, IV'S PATENT AND NO C/O PAIN AT THIS TIME. WILL CONTINUE TO MONITOR AIRVO (40L, 75% FIO2).
--- NOTE | 2020-05-03 15:30 | NUR ---
GOT PT UP OUT OF BED TO THE CHAIR. CHANGED HIS BED LINEN BUT HE STILL REFUSED A BATH. RELYNER SEEMS TO BE COMFORTABLE FOR HIM. WILL LEAVE HIM UP OUT OF BED LONG HE WILL TOLERATE.
[2020-05-03 17:23] LABS: Phosphorus, Blood 2.5 mg/dL (2.5-4.9); Potassium, Blood 3.2 mmol/L (3.5-5.5)
--- NOTE | 2020-05-03 18:28 | NUR ---
SHIFT SUMMARY: PATIENT STILL VERY DEPRESSED WITH FLAT AFFECT. DOES NOT WANT TO ENGAGE MUCH. GOT PATIENT UP TO THE CHAIR AT 1300 AND HE HAS BEEN UP IN THE CHAIR EVER SINCE. CHANGED LINENS AND GOT A PARTIAL BATH DONE. PATIENT ENGAGING A LITTLE MORE AND JUST WANTED SOMEONE TO STAY IN THERE WITH HIM. SPENT A GOOD HOUR WITH HIM TALKING AND TRYING TO GET HIM COMFORTABLE IN THE CHAIR. VSS, STILL SHOWS WORK OF BREATHING AT TIMES. FIO2 REDUCED FROM 75% TO 65% AND PATIENT SATS ARE FINE. RECTAL TUBE LEAKS SLIGHTLY BUT WAS UNABLE TO READJUST. URINE OUTPUT GOOD WITH CONDOM CATH, RECTAL TUBE SHOWING DARK BROWN LIQUID STOOL (MARKED AT 200).
--- NOTE | 2020-05-03 19:26 | NUR ---
05/03 @ 19:[address] MCMAHAN TO GIVE 40 MEQ POTASSIUM TO REPLACE K+ = 3.2. PER DR. MCMAHAN NO FURTHER CHANGE IN BLOOD GLUCOSE MANAGEMENT, DEFER TO DAY TIME HOSPITALIST. WILL CONTINUE TO MONITOR.
--- NOTE | 2020-05-04 06:47 | NUR ---
SHIFT SUMMARY PATIENT SLEPT RELATIVELY WELL TONIGHT. HAS SOUNDED CLEAR THROGUH ALL LUNG MANZO TONIGHT, ALTHOUGH DIMINISHED IN BOTH BASES. PT. SPIRITS HAVE BEEN IMPROVED, MORE COOPERATIVE WITH CARE. HAS REFUSED ALL HYGEINE UNFORTUNATELY, BUT WAS AT LEAST CONVERSATIONAL TONIGHT. TOLERATING AIRVO. DECREASED FIO2 TO 50%. AT ONE POINT PATIENT HAD ACCIDENTALY TAKEN CANULA OFF TO ITCH NOSE, WAS ONLY DESATURATING TO ABOUT 86% WITHOUT AIR-VO. ASSESSMENT IS CHARTED. VSS. NO C/O PAIN. WILL CONTINUE TO MONITOR.
[2020-05-04 08:56] LABS: Hematocrit 40.4 % (37.0-53.0); Hemoglobin 13.9 g/dL (13.5-17.5); Mean Corpuscular HGB 29.2 pg (26.0-34.0); Mean Corpuscular HGB Conc 34.4 g/dL (31.5-36.5); Mean Corpuscular Volume 85 fL (80-100); Mean Platelet Volume 10.6 fL (9.1-12.4); Platelet Count 251 K/mm3 (150-400); RDW Coefficient Variation 13.2 % (11.7-14.2); RDW Standard Deviation 40.9 fL (35.1-46.3); Red Blood Cell Count 4.76 M/mm3 (4.30-5.90); White Blood Cell Count 4.99 K/mm3 (4.00-11.30)
[2020-05-04 09:18] LABS: Alanine Aminotransfer (ALT/SGP 187 U/L (12-78); Albumin/Globulin Ratio 0.6 (0.8-1.8); Alk Phos 123 U/L (50-136); Anion Gap 8 mmol/L (6-16); Aspartate Aminotrans (AST/SGOT 174 U/L (12-37); Bilirubin, Total 0.6 mg/dL (0.1-1.0); Blood Urea Nitrogen 17 mg/dL (8-24); Bun/Creatinine Ratio 20.1 (12.0-20.0); CO2, Blood 27 mmol/L (21-32); Calcium, Blood 7.3 mg/dL (8.5-10.1); Chloride, Blood 104 mmol/L (98-108); Creatinine, Blood 0.85 mg/dL (0.60-1.20); Globulin, Blood 3.3 g/dL (2.2-4.0); Glomerular Filtration Rate >60 (60-); Glucose, Blood 215 mg/dL (70-99); Magnesium, Blood 2.1 mg/dL (1.6-2.4); Phosphorus, Blood 1.2 mg/dL (2.5-4.9); Potassium, Blood 3.3 mmol/L (3.5-5.5); Sodium, Blood 139 mmol/L (136-145); Total Protein, Blood 5.3 g/dL (6.4-8.2)
[2020-05-04 09:26] LABS: BAND PERCENT MAN 10 % (0-8); BASOPHILS PERCENT MAN 0 % (0-2); EOSINOPHILS PERCENT MAN 0 % (0-6); LYMPHOCYTES ABSOLUTE MAN 0.29 K/mm3 (0.84-5.20); LYMPHOCYTES PERCENT MAN 6 % (21-46); METAMYELOCYTE ABSOLUTE MAN 0.19 K/mm3 (0.00-0.00); METAMYELOCYTE PERCENT MAN 4 % (0-0); MONOCYTES ABSOLUTE MAN 0.79 K/mm3 (0.16-1.47); MONOCYTES PERCENT MAN 16 % (4-13); MYELOCYTE ABSOLUTE MAN 0.14 K/mm3 (0.00-0.00); MYELOCYTE PERCENT MAN 3 % (0-0); NEUTROPHILS ABSOLUTE MAN 3.54 K/mm3 (1.96-9.15); SEG NEUTROPHILS PERCENT MAN 61 % (41-73); TOTAL CELLS COUNTED 100
--- NOTE | 2020-05-04 13:25 | NUR ---
ASSISSTED PT BACK TO BED STATEING THAT HE IS TIRED AND WE "WORE HIM OUT THIS MORNING" DOES NOT WANT TO BE SHAVED YET, HE JUST WANTS TO REST. PT HAS BEEN UP IN THE CHAIR SINCE 8SM THIS MORNING. WE WILL CONTINUE TO MONITOR AND TRY TO GET HIM TO LET US SHAVE HIM.
--- NOTE | 2020-05-04 18:27 | NUR ---
SHIFT SUMMARY- PT BATHED, RECTAL TUBE REPLACED AND ASSISTED UP TO THE CHAIR AT 0800. VSS, AIRVO STILL AT 55% FIO2, PT STILL REQUIRES TIME FOR RECOVERY AFTER ANY EXERTION. CONDOM CATH REPLACED TWICE TODAY, URINE OUTPUT WAS GOOD. PATIENT BACK TO BED AT 1300. DAUGHTER CAME TO THE WINDOW AND TALKED TO HIM TODAY. HE SEEMS TO BE IN BETTER SPIRITS. UNABLE TO CONVINCE HIM TO LET US SHAVE HIM OR WASH HIS HAIR. PT WORKED WITH HIM THIS AFTERNOON.
[2020-05-05 03:49] LABS: BASOPHILS ABSOLUTE AUTO 0.02 K/mm3 (0.00-0.23); BASOPHILS PERCENT AUTO 1 % (0-2); EOSINOPHILS PERCENT AUTO 0 % (0-6); Hematocrit 34.8 % (37.0-53.0); Hemoglobin 11.9 g/dL (13.5-17.5); IMMATURE GRAN ABSOLUTE AUTO 0.39 K/mm3 (0.00-0.10); IMMATURE GRAN PERCENT AUTO 9 % (0-1); LYMPHOCYTES ABSOLUTE AUTO 0.26 K/mm3 (0.84-5.20); LYMPHOCYTES PERCENT AUTO 6 % (21-46); MONOCYTES ABSOLUTE AUTO 0.98 K/mm3 (0.16-1.47); MONOCYTES PERCENT AUTO 23 % (4-13); Mean Corpuscular HGB Conc 34.2 g/dL (31.5-36.5); Mean Corpuscular Volume 85 fL (80-100); Mean Platelet Volume 10.5 fL (9.1-12.4); NEUTROPHILS ABSOLUTE AUTO 2.62 K/mm3 (1.96-9.15); NEUTROPHILS PERCENT AUTO 61 % (41-73); Platelet Count 225 K/mm3 (150-400); RDW Coefficient Variation 13.2 % (11.7-14.2); RDW Standard Deviation 40.9 fL (35.1-46.3); White Blood Cell Count 4.27 K/mm3 (4.00-11.30)
[2020-05-05 04:11] LABS: Albumin, Blood 1.8 g/dL (3.4-5.0); Anion Gap 7 mmol/L (6-16); Blood Urea Nitrogen 21 mg/dL (8-24); CO2, Blood 27 mmol/L (21-32); Chloride, Blood 105 mmol/L (98-108); Creatinine, Blood 0.84 mg/dL (0.60-1.20); Glomerular Filtration Rate >60 (60-); Glucose, Blood 226 mg/dL (70-99); Potassium, Blood 3.5 mmol/L (3.5-5.5); Sodium, Blood 139 mmol/L (136-145)
--- NOTE | 2020-05-05 05:01 | NUR ---
SHIFT SUMMARY PATIENT SLEPT WELL TONIGHT. NO C/O DYSPNEA NOR PAIN. AIR-VO TURNED DOWN SLIGHTLY PER RT, 55 L/MIN, 45% FIO2. NO ACUTE CHANGES OVERNIGHT. ASSESSMENT IS CHARTED. VSS. WILL CONTINUE TO MONITOR.
[2020-05-05 05:07] LABS: PCO2 Arterial 35.3 mmHg (35-45); PO2 Arterial 58.2 mmHg (80-100)
[2020-05-05 05:45] LABS: BAND PERCENT MAN 7 % (0-8); BASOPHILS PERCENT MAN 0 % (0-2); EOSINOPHILS PERCENT MAN 0 % (0-6); LYMPHOCYTES ABSOLUTE MAN 0.25 K/mm3 (0.84-5.20); LYMPHOCYTES PERCENT MAN 6 % (21-46); METAMYELOCYTE ABSOLUTE MAN 0.25 K/mm3 (0.00-0.00); METAMYELOCYTE PERCENT MAN 6 % (0-0); MONOCYTES ABSOLUTE MAN 0.55 K/mm3 (0.16-1.47); MONOCYTES PERCENT MAN 13 % (4-13); MYELOCYTE ABSOLUTE MAN 0.08 K/mm3 (0.00-0.00); MYELOCYTE PERCENT MAN 2 % (0-0); NEUTROPHILS ABSOLUTE MAN 3.11 K/mm3 (1.96-9.15); SEG NEUTROPHILS PERCENT MAN 66 % (41-73); TOTAL CELLS COUNTED 100
--- NOTE | 2020-05-05 08:00 | NUR ---
Received report from Eric CAMPBELL. Patient awake in room listening to music on phone and is able to communicate his needs. He is on AirVo 55L 45% and sast >90%. Patient seems to be increased mood today after able to see family through the window. He has been afebrile 97.6. He has dobhoff tube in and infusing Glucerna at 70 ml/hr and 90 ml water flushes Q4 and tolerating well. He has rectal tube in place for liquid stool that he has had prior to admission. He has 18ga PowerGlide and is infusing NS with 20meq K at 75 ml. VSS, SeeEMR.
--- NOTE | 2020-05-05 10:00 | NUR ---
No changes to airVo and sats 95%. He is alert and oriented and is tolerating TF. Meds through Dobhoff. Fluids continue.
--- NOTE | 2020-05-05 12:09 | NUR ---
Dr Martinez has been in room with patient. Increased SS for insulin. Stopped fluids. Will try grapes with patient with eval for swallow , ok with Dr Manuel for taste and nouth moisture. will be coming by to see.
--- NOTE | 2020-05-05 14:36 | NUR ---
05/05/20- per chart review with Dr. Perez, pt is still in the ICU and expected to stay. No Plan for d/c at this time. -ani
--- NOTE | 2020-05-05 15:00 | NUR ---
Patients was by and was in room for almost 2 hours and his spirits have picked up. He has remains on 55L 45% with sats >90%. He was able to tolerate a few sliced grapes and concentrated on swallowing and did well but still did not like grapes daughter dropped off. He denied any PT as he was worried it would tire hime too much as the day before. VSS, See EMR. Cortes continues to have good output.
--- NOTE | 2020-05-05 18:00 | NUR ---
Had a good talk with patient and still his spirits remains high, daughter was by window and helpped cheer up. He continues to tolerate TF at 70ml/hr of Glucerna with 90 ml water flushed Q4. Fluids remain off and K phos contiunes. Condom cath had 2600 mls clear yellow, rectal tube had 500 very dark brown liq stool. gave sponge bath as he did not even want bath and changed gown.
--- NOTE | 2020-05-05 20:00 | NUR ---
ASSUMED CARE OF PT AT 1915. REPORT RECEIVED. PT PRESENTS IN BED. ALERT AND ORIENTED. PLEASANT AND COOPERATIVE WITH CARE AND ASSESSMENT. PT ON AIRVO AT THIS TIME. MAINTAINS SATURATIONS > 90 PERCENT. PT HAS SOME LEAKAGE AROUND HIS DIGNISHIELD. CLEANED PT, AND ADDED 5 ML MORE H20 TO CUFF. CALAZYME CREAM PLACED TO DECLAN AREA SECONDARY TO TENDERNESS AND LIGHT ESCORIATION. PT TOLERATES TURN IN BED WELL. WILL REVIEW CHART AND PLAN OF CARE FOR THIS PT.
--- NOTE | 2020-05-05 22:30 | NUR ---
PT MAINTAINS TUBE FEEDING AT GOAL. NO COMPLAINTS. AIRVO IN PLACE AT 45 % FIO2 WITH 55 L/M FLOW. PT TOLERATING THIS WELL. IS ABLE TO MAINTAIN > 90 PERCENT SATURATIONS. TEACHING DONE WITH PT ON COVID 19, AND OXYGEN NEEDS. PT ASK A FEW QUESTIONS THAT ARE ANSWERED.
--- NOTE | 2020-05-06 02:00 | NUR ---
PT CONTINUES TO TOLERATED TURNS Q 2 HOURS. DOES HAVE OCCASSIONAL MOIST COUGH WITH CLEAR SECRETIONS EXPECTORATED. PT CONTINUES WITH LIQUID BROWN STOOL FROM DIGNISHIELD. PT HAS SOME TENDERNESS AT RECTAL TUBE SITE. HAVE BEEN PUTTING CALAMYZE CREAM TO PROVIDE COMFORT. PT MAINTAINS > 90 PERCENT SATURATION WITH AIRVO.
--- NOTE | 2020-05-06 05:22 | NUR ---
PT HAS HAD SOME LEAKAGE FROM AROUND HIS DIGNISHIELD. ALSO HAS SOME CONTACT IRRITATION FROM TUBE. CALL MADE TO HOSPITALIST FOR LIDOCAINE TO RECTAL AREA FOR RELIEF. PT CONTINUES ON TUBE FEED AT GOAL. TOLERATES THIS WELL. HAVE BEEN ABLE TO TITRATE FIO2 DOWN TO 40 % WHEREAS PT MAINTAINS > 90 PERCENT SATURATIONS. DID DISCUSS WITH RESPIRATORY CARE THIS DECREASE. PT HAS TOLERATED TURNS IN BED Q 2 HOURS FOR PRESSURE RELIEF. NO TIME SPENT SUPINE ONLY TURNS TO RIGHT OR LEFT. WILL CONTINUE TO MONITOR PT, AND WILL REPORT OFF TO ONCOMING RN.
--- NOTE | 2020-05-06 07:43 | NUR ---
Received report from Lit Pino. Patient is lying in bed on right side after repositioning and changing lower linen from kinked rectal tube. Patient speaks in quiet voice and slow to respond. He is on AirVo 55L /40% and sats 93-94%. He is very sore to reposition as his buttocks is red from watery stool leaking. He has Dobhoff tube in place and is infusing Glucerna 1.2 at 70 ml/hr and 90 ml water flush Q4 and tolerating well. He has 18ga PowerGlide in [place] and is infusing NS TKO. He has condom cath in place and draining to gravity clear yellow urine . All distal extremities elevated. Patient uses call light appropriately.
--- NOTE | 2020-05-06 10:00 | NUR ---
Changed patient to High flow NC and started at 12L and weaned to 8L HF NC and sats >95%. VSS. Still very flat affect. But was telling jokes and is very humerous. ST in room doing eval currently after refusing the first time this am. Gave daughter Constanza hermelinda.
[2020-05-06 10:14] LABS: Vancomycin, Trough 15.8 ug/mL (5.0-10.0)
--- NOTE | 2020-05-06 12:30 | NUR ---
Patient up in chair with assist and while ambulating to chair sats went as low as 89% and back uo to 95 on 8L On via HF NC after resting. I set him up for having some chicken soup and tolerated small amount. VSS, See EMR.
--- NOTE | 2020-05-06 14:30 | NUR ---
I have weaned patient down to 2L O2 via HF NC and sats 95%. He ate about half of chicken soup. He denies any SOB , but states remains weak. He continues NS TKO through 18ga PowerGlide in [place]. Condom cath remains to drain to gravity clear yellow urine in adequate amounts. Rectal tube comntinues to have dark liquid output and leaks around rectum.
--- NOTE | 2020-05-06 15:39 | NUR ---
Put patient back to bed. He remains on 2L O2 Via HF NC. While transferring he was standing for about 5 minutes and sats only dropped to 88% and after laying down came up quickly to 95%. He felt very tired but seem to recover and able to talk fluently. VSS See EMR. Made some adjustments to rectal tube placement for leakage. TF feening continue at same rate.
--- NOTE | 2020-05-06 17:52 | NUR ---
Patient awake in bed and daughter was just ouside window and son coming soon. He remains on 2L O2 via HF NC and sats >94%. His TF continues Glucerna 1.2 at 70 ml/hr and90 mlwater flushes q4. Just placed new set of TF's. CBg's still needing coverage. He has katina more interactive and he sees progress with his O2 decrease. Rectal tube still leaking around rectum and had 400 ml's dark brown liquid stool. His condom cath had over 2000 ml's for the shift.
--- NOTE | 2020-05-06 21:32 | NUR ---
ASSUMED CARE OF PT AT 1900. REPORT RECEIVED. PT PRESENTS IN BED. ALERT AND ORIENTED PLEASANT AND COOPERATIVE WITH CARE AND ASSESSMENT. PT ACKNOWLEDGES THAT HE HAS HAD A BETTER DAY TODAY. OXYGEN NEEDS HAVE DECREASED. CALL MADE TO DR RASHID REQUESTING POSSIBLE BANANATROL FLAKES TO SLOW LIQUID STOOL. ORDER RECEIVED. TEACHING DONE WITH PT ON PLAN OF CARE TO POTENTIALLY GET HIS DIGNISHIELD REMOVED. PT IN AGREEMENT WITH THIS PLAN. WILL REVIEW CHART AND PLAN OF CARE FOR THIS PT.
--- NOTE | 2020-05-07 03:40 | NUR ---
PT HAS HAD SOME LEAKAGE FROM AROUND THE DIGNISHIELD. IS ABLE TO CALL WHEN HE FEELS THIS HAS OCCURRED. AFTER CLEANING PT, HAVE USED CALAMZYME AND LIDOCAINE TO ESCORIATED AREAS. PT STATES THIS HAS HELPED. STOOL HAS NOTED TO SOMEWHAT THICKER. IF THIS PROGRESSES, WILL CONSIDER REMOVAL OF DIGNISHIELD. DISCUSSED THIS WITH PT AND HE IS IN AGREEMENT WITH THIS PLAN. PT CONTINUES ON 2 L/M OXYGEN AND HAS MAINTAINED > 90 PERCENT SATURATIONS. WILL CONTINUE TO MONITOR PT.
--- NOTE | 2020-05-07 06:42 | NUR ---
HAVE REMOVED PT'S DIGNISHIELD SECONDARY TO FREQUENT LEAKAGE AROUND TUBE ALSO FOR PT'S DISCOMFORT WITH TUBE. AFTER CLEANING PT, LIDOCAINE AND ZINC OXIDE APPLIED TO ESCORIATED AREA IN DECLAN REGION. PT HAS TOLERATED Q 2 HOUR TURNS IN BED. WILL CONTINUE TO MONITOR PT, AND WILL REPORT OFF TO ONCOMING RN.
--- NOTE | 2020-05-07 09:40 | NUR ---
ASSUMED CARE REPORT FROM ENRIQUE CAMPBELL AT 0700. PT RESTING IN BED. PROVIDED PT c UNINTERRUPTED REST UNTIL AFTER BREAKFAST. PT UP TO WORK c OT. PT ABLE TO STAND AND TRANSFER TO CHAIR c WALKER. STATES HE FELT LIGHTHEADED AND DECLINED ADDITIONAL WORK. PT A&OX 4. SLOW TO RESPOND BY ANSWERS QUESTION APPROPRIATELY. FOLLOWS COMMANDS. LUNGS DIMINISHED IN BASES. MOIST COUGH, NON PRODUCTIVE. 2L VIA NC. O2 SATS >95%, DYSPNEA c EXERTION, DOES NOT DESAT. SLOW MOVEMENT BUT MAEW. DOBHOFF TO NARE. GLUCERNA AT GOAL OF 70 ML/HR. ENCOURAGED PO INTAKE. PT ABLE TO SWALLOW s DIFFICULTIES BUT HAS POOR APPETITE, BOTH SPEECH AND DIETARY WORKING c PT. ABD ROUND, SOFT, GENERALIZED TENDERNESS. BT X 4. CONDOM CATH IN PLACE, DRAINING WELL. POWERGLIDE TO LUE, DRESSING C/D/I. VSS. PT STATUS CHANGED TO MED s TELE. WILL CONTINUE TO MONITOR.
--- NOTE | 2020-05-07 13:17 | NUR ---
05/07/20- per chart review with Dr. Perez, pt's need for O2 has decreased from High flow O2 to 2L. If pt continues to improve, he could potentially be d/c this Monday. -ani
--- NOTE | 2020-05-07 17:48 | NUR ---
SHIFT SUMMARY PT REMAINS IN ICU, AWAITING MEDICAL BED ASSIGNMENT. PT UP TO CHAIR SEVERAL TIMES THIS SHIFT. WORKED c PT AND OT. TOLERATED WELL. PT c SEVERAL EPISODES OF DARK BROWN STOOL, THICKER THAN BEGINING OF SHIFT. VSS. REMAINS ON 2L VIA NC. LUNGS DIMINISHED IN BASES. TUBE FEEDS PLACED ON HOLD PER DR DUNN TO ENCOURAGE PO INTAKE. IMPROVED THIS SHIFT. WILL CONTINUE TO MONITOR UNTIL REPORT TO ONCOMING NURSE.
--- NOTE | 2020-05-07 20:00 | NUR ---
ASSUMED CARE OF PT AT 1915. REPORT RECEIVED. PT PRESENTS IN BED. ALERT AND ORIENTED. PLEASANT AND COOPERATIVE WITH CARE AND ASSESSMENT. NO COMPLAINTS OF DYSPNEA. IS AWARE THAT HE IS TO BE TRANSFERRED TO ROOM 310 THIS EVENING. PT GIVEN ENCOURAGENT IN INCREASING PARTICIPATION IN HIS ADL'S AND TO WORK TO IMPOROVE HIS NUTRITIONAL IMPUT WITH MEALS. SAFE SWALLOW TEACHING REINFORCED. WILL GIVE REPORT WHEN RN AVAILABLE. WILL REVIEW CHART AND PLAN OF CARE FOR THIS PT.
--- NOTE | 2020-05-07 21:05 | NUR ---
REPORT RECEIVED FROM ENRIQUE,WATCHGUARD. PT TRANSFERRED TO MEDICAL FLOOR VIA BED, STOOD AND TRANSFERRED SELF FROM ICU BED TO NEW BED IN ROOM. VS AND CBG TAKEN, O2 SATS STABLE ON RA AT THIS TIME. NC AT BEDSIDE. PT APPEARS MOTIVATED TO PARTICIPATE IN CARES, FLAT AFFECT, BUT IN GOOD SPIRITS. DOBHOFF TUBE TO NARE IN PLACE, SKIN C/D/I. NO ACUTE CHANGES FROM ASSESSMENT NOTED. CALL LIGHT PLACED IN REACH OF PT, POSSESSIONS IN REACH. BED IN LOW POSITION WITH ALARMS ON. CONTINUE TO MONITOR.
--- NOTE | 2020-05-07 21:30 | NUR ---
REPORT CALLED TO RN FOR ROOM 310. REPORT GIVEN IN SBAR FASHION. ALLOWED FOR QUESTIONS. PT TRANSFERRED OUT OF ICU AT 2108 IN STABLE CONDITION. ALL BELONGINGS WITH PT.
--- NOTE | 2020-05-08 04:51 | NUR ---
SHIFT SUMMARY PT ASLEEP, IN NO ACUTE DISTRESS. VS REVIEWED, WNL. PT ON 2L/NC CURRENTLY, O2 SATS STABLE. OCCASIONAL DRY COUGH. ENCOURAGED PO INTAKE T/O NIGHT, PT REFUSED, STATING HE WASN'T HUNGRY. TOLERATED PO MEDS AND FLUIDS W/O DIFFICULTY. DOBHOFF REMAINS INTACT TO NARES. PT EASILY FORGETFUL AT TIMES, STATING HE IS UNSURE OF LOCATION AND WANTS TO LEAVE, BUT THEN REMEMBERS WHERE HE IS AND IS ABLE TO MAKE NEEDS KNOWN. CALLS APPROPRIATELY. UP TO BSC WITH 1 PERSON SBA/PIVOT TRANSFER. O2/NC PLACED FOR ACTIVITY. CBGS CONTINUE Q6H, COVERED WITH INSULIN PER SLIDING SCALE. NO ACUTE NEEDS ASSESSED AT THIS TIME. CALL LIGHT AND POSSESSIONS IN REACH, BED IN LOW POSITION WITH ALARMS ON. CONTINUE TO MONITOR, REPORT OFF TO DAY RN.
[2020-05-08 06:39] LABS: Hematocrit 34.5 % (37.0-53.0); Hemoglobin 11.8 g/dL (13.5-17.5); Mean Corpuscular HGB 28.9 pg (26.0-34.0); Mean Corpuscular HGB Conc 34.2 g/dL (31.5-36.5); Mean Corpuscular Volume 84 fL (80-100); Mean Platelet Volume 10.6 fL (9.1-12.4); Platelet Count 266 K/mm3 (150-400); RDW Coefficient Variation 13.3 % (11.7-14.2); RDW Standard Deviation 41.1 fL (35.1-46.3); Red Blood Cell Count 4.09 M/mm3 (4.30-5.90); White Blood Cell Count 4.52 K/mm3 (4.00-11.30)
[2020-05-08 06:52] LABS: Magnesium, Blood 2.5 mg/dL (1.6-2.4); Phosphorus, Blood 3.4 mg/dL (2.5-4.9)
[2020-05-08 07:16] LABS: BAND PERCENT MAN 3 % (0-8); BASOPHILS PERCENT MAN 0 % (0-2); EOSINOPHILS PERCENT MAN 0 % (0-6); LYMPHOCYTES ABSOLUTE MAN 0.54 K/mm3 (0.84-5.20); LYMPHOCYTES PERCENT MAN 12 % (21-46); METAMYELOCYTE ABSOLUTE MAN 0.04 K/mm3 (0.00-0.00); METAMYELOCYTE PERCENT MAN 1 % (0-0); MONOCYTES ABSOLUTE MAN 0.72 K/mm3 (0.16-1.47); MONOCYTES PERCENT MAN 16 % (4-13); MYELOCYTE ABSOLUTE MAN 0.22 K/mm3 (0.00-0.00); MYELOCYTE PERCENT MAN 5 % (0-0); NEUTROPHILS ABSOLUTE MAN 2.98 K/mm3 (1.96-9.15); SEG NEUTROPHILS PERCENT MAN 63 % (41-73); TOTAL CELLS COUNTED 100
--- NOTE | 2020-05-09 17:02 | NUR ---
SHIFT SUMMARY- PT IS A/O, PLESANT AND COOPERATIVE. HE IS EATING AND DRINKING WELL. HIS BLOOD SUGARS HAVE REMAINED STABLE THIS SHIFT. HE WORKED WITH PT AND TOLERATED WELL. POSSIBLE DISCHARGE TOMORROW. HIS BED IS IN THE LOW POSITION AND CALL LIGHT IS WITHIN REACH.
--- NOTE | 2020-05-10 07:19 | NUR ---
SUMMARY NOP NEW ISSUES NOTED. PT DENIED SOB OR CX PAIN. PT SLEPT WELL T/O SHIFT. PT DAUGHTER CALLED FOR UPDATE AND WOULD LIKE PROVIDER TO CONTACT HER. PT CURRENTLY SLEEPING AND BREATHING EASY. CALL LIGHT IN REACH.
--- NOTE | 2020-05-10 18:26 | NUR ---
SHIFT SUMMARY- PT IS A/O, PLESANT AND COOPERATIVE. HE IS EATING AND DRINKING WELL. HE IS RECIEVING ORAL STEROIDS. HIS BLOOD SUGAR WAS ELEVATED THIS EVENING AND REQUIRED COVERAGE. PLANNED ON DISCHARGE TODAY, PT DID NOT FEEL COMFORTABLE GOING HOME. HE IS INDEPENDENT IN THE ROOM. HE DECLINED HAVING HIS CONDOM CATH REMOVED THIS MORNING. LATER IN THE DAY IT FELL OFF. PT WAS PROVIDED A URINAL TO USE INSTEAD. HIS DAUGHTER VISITED THIS AFTERNOON AND BROUGHT LUNCH. HIS BED IS IN THE LOW POSITON AND CALL LIGHT IS WITHIN REACH.
--- NOTE | 2020-05-11 03:48 | NUR ---
SHIFT SUMMARY ASSUMED CARE OF PT AT 1900. PT IS A/OX4. HEART SOUNDS REGUALR, LUNG SOUNDS DIMINISHED. PT USED URINAL T/O THE NIGHT. PT WORRIED ABOUT GOING HOME THIS AM. PT C/O FOGGINESS IN HIS BRAIN. NO ACUTE EVENTS DURING THE NIGHT. CALL LIGHT IN REACH, BED IN LOWEST POSTION.
[2020-05-11] MEDS ORDERED: ACET325 PO (14:59)
[2020-05-11] MEDS ORDERED: DEXA2 PO (15:01)
[2020-05-11] MEDS ORDERED: INSULANPEN SC (15:04)
--- NOTE | 2020-05-11 18:07 | NUR ---
PT DISCHARGED AT 1730 WITH ALL PERSONAL BELONGINGS. PT HAD EDUCATION ON CHECKING CBGS IN THE AM AT HOME AND HOW TO GIVE HIS LONG ACTING INSULIN AT HOME. PT DEMONSTRATED GIVING HIMSELF INSULIN WITH THIS FAST [employer]OD TEAM MEMBER. DAUGHTER WAS ABLE TO WATCH AND ASK QUESTIONS. BOTH VERBALIZED UNDERSTANDING. ALL PERSONAL BELONGINGS WERE COLLECTED AND PT WAS ESCORTED OUT S ENTRANCE VIA WHEEL CHAIR BY THIS FAST FOOD TEAM MEMBER. MEDICATIONS FAXED TO [facility].
--- NOTE | 2020-05-11 18:41 | NUR ---
SUMMARY: admit 04/26/20 05/11/20 Discharge home with , Royal was identified during his stay, Dr Barrera feels he came in on a false negative test, Therefore he does not need to quarrentine when he gets home. Home on steroids, Glucometer and insulin should be needed for the next 6 days. Front wheel walker ordered from [facility]. daughter to fish bait picker. Floor nurse educated Richard and daughter how to test his sugars and adminiter insulin prior to discharge. [facility] will provide additional DM education once home. Discussed bryce and 1 week follow up appointment. Please call Richard for bryce.
== END 2020-05-11 17:30 | disposition home health service (06) | DRG 177 ==
LOC: ER 14:34 → ICUW 18:42 → MEDS 18:42 → ICUE 05-02 09:00 → ICUW 05-02 09:35 → ICUE 05-02 12:02 → MEDS 05-07 21:23 → ENPENDDIS 05-11 13:53 → MEDS 05-11 17:30
PROVIDERS: Emergency Medicine; Family Medicine; Internal Medicine; Internal Medicine Pulmonary Disease; Pharmacist; Physician Assistant; Student in an Organized Health Care Education/Training Program; ADMIT Internal Medicine
PROC: XW033E5 Introduction of Remdesivir Anti-infective into Peripheral Vein, Percutaneous Approach, New Technology Group 5 (ICD-10-PCS; principal; 2020-05-02)
DX: J69.0 Pneumonitis due to inhalation of food and vomit (principal); U07.1 COVID-19; J12.82 Pneumonia due to coronavirus disease 2019; J96.01 Acute respiratory failure with hypoxia; C85.90 Non-Hodgkin lymphoma, unspecified, unspecified site; E44.0 Moderate protein-calorie malnutrition; E86.0 Dehydration; E11.65 Type 2 diabetes mellitus with hyperglycemia; Z79.4 Long term (current) use of insulin; I10 Essential (primary) hypertension; E87.6 Hypokalemia; E11.42 Type 2 diabetes mellitus with diabetic polyneuropathy; Z89.421 Acquired absence of other right toe(s); E78.5 Hyperlipidemia, unspecified; T38.0X5A Adverse effect of glucocorticoids and synthetic analogues, initial encounter; E83.39 Other disorders of phosphorus metabolism; F32.9 Major depressive disorder, single episode, unspecified
CPT/HCPCS: 0241U; 36415; 36600; 71045; 71046; 74176; 76705; 80053; 80069; 80074; 80202; 81001; 82565; 82803; 82947; 83605; 83690; 83735; 83880; 84100; 84132; 84145; 84484; 85025; 87040; 92526; 92610; 93005; 93010; 94760; 96365; 96374; 96375; 97110; 97116; 97162; 97165; 97530; 97535; 99285-25; A9270; J1650; J2405; J2543; J3010; J3370; J3475; J3480; J7040; J7050; J7060

== ENCOUNTER → 2020-06-05 | Outpatient (CLI) | payer MEDICARE, BC ==
[~2020-06-05] MED LIST changes: +ACET325 PO; +CEFD300 PO; +DEXA2 PO; +INSULANPEN SC
[2020-06-05 14:11] LABS: Source, Urine Clean Catch
[2020-06-05 14:22] LABS: Bacteria Not Seen /hpf; Calcium Oxalate Crystals Many /hpf; Red Blood Cells, Urine Not Seen /hpf (0-2); Squamous Epithelial Cells Not Seen /hpf (Few); White Blood Cells, Urine 0-2 /hpf (0-5)
== END | disposition home or self-care (01) ==
LOC: LAB SHORT 14:09 → PLD 14:09
PROVIDERS: Family Medicine
DX: R35.0 Frequency of micturition (principal)
CPT/HCPCS: 81015